=== PATIENT | male | born 1960 | race Caucasian/White ===

== ENCOUNTER 2017-02-15 15:19 | Emergency (ER) | payer OTHER ==
[~2017-02-15 15:19] MED LIST: ALBUTEROL IN200 PUFF INH; ASPIRIN81 MG PO; BACTROBAN15 GM TP; BUSPIRONE HCL5 MG PO; CARAFATE1 GM PO; CLARITIN10 MG PO; COREG6.25 MG PO; CYMBALTA30 MG PO; DESYREL50 MG PO; DOK100 MG PO; ELIQUIS5 MG PO; FINASTERIDE5 MG PO; FOLIC ACID1 MG PO; ISOSORBIDE MONO30 MG PO; KEFLEX500 MG PO; KLONOPIN2 MG PO; KLOR-CON 1010 MEQ PO; LANTUS100 UNIT/1 SQ; LEXAPRO20 MG PO; LIPITOR40 MG PO; MELOXICAM15 MG PO; MOTRIN600 MG PO; NEURONTIN400 MG PO; NEURONTIN800 MG PO; NITROGLYCERIN0.4 MG SL; OMEPRAZOLE40 MG PO; OXYCODON-ACETA1 EAC1 PO; PACERONE200 MG PO; PHENERGAN25 M1 PO; SINGULAIR10 MG PO; SULFAMETHOXAZO1 EACH PO; ZESTRIL20 MG PO; ZESTRIL5 MG PO; ZYLOPRIM300 MG PO
== END 2017-02-15 17:19 | disposition home or self-care (01) ==
LOC: ER 15:19
DX: S70.02XA Contusion of left hip, initial encounter (principal); S20.229A Contusion of unspecified back wall of thorax, initial encounter; W19.XXXA Unspecified fall, initial encounter; Y92.019 Unspecified place in single-family (private) house as the place of occurrence of the external cause; I10 Essential (primary) hypertension; J44.9 Chronic obstructive pulmonary disease, unspecified; Z90.49 Acquired absence of other specified parts of digestive tract; Z98.890 Other specified postprocedural states; Z88.0 Allergy status to penicillin; Z79.899 Other long term (current) drug therapy
CPT/HCPCS: 72100; 73502; 96372; 99283-25

== ENCOUNTER 2017-03-15 06:21 | Emergency (ER) | payer OTHER | END 2017-03-15 09:07 | disposition home or self-care (01) | LOC: ER 06:21 | DX: S02.2XXA Fracture of nasal bones, initial encounter for closed fracture (principal); S80.12XA Contusion of left lower leg, initial encounter; S30.0XXA Contusion of lower back and pelvis, initial encounter; S01.81XA Laceration without foreign body of other part of head, initial encounter; W10.9XXA Fall (on) (from) unspecified stairs and steps, initial encounter; Y92.019 Unspecified place in single-family (private) house as the place of occurrence of the external cause; I10 Essential (primary) hypertension; E11.9 Type 2 diabetes mellitus without complications; M54.9 Dorsalgia, unspecified; G89.29 Other chronic pain; Z88.0 Allergy status to penicillin | CPT/HCPCS: 12011; 70160; 72040; 72100; 73590; 90471; 90715; 99070; 99283-25 ==

== ENCOUNTER 2017-03-19 09:56 | Emergency (ER) | payer OTHER ==
[2017-03-19 11:09] LABS: URINE BILIRUBIN NEGATIVE (NEGATIVE); URINE BLOOD NEGATIVE (NEGATIVE); URINE GLUCOSE (UA) 50 mg/dL (NORMAL); URINE KETONE NEGATIVE (NEGATIVE); URINE LEUKOCYTE ESTERASE NEGATIVE (NEGATIVE); URINE NITRATE NEGATIVE (NEGATIVE); URINE PROTEIN NEGATIVE (NEGATIVE); UROBILINOGEN NORMAL mg/dL (<1.0)
== END 2017-03-19 11:16 | disposition home or self-care (01) ==
LOC: ER 09:56
PROVIDERS: Emergency Medicine
DX: M54.6 Pain in thoracic spine (principal); G89.29 Other chronic pain; M25.572 Pain in left ankle and joints of left foot; W11.XXXD Fall on and from ladder, subsequent encounter; E11.9 Type 2 diabetes mellitus without complications; J44.9 Chronic obstructive pulmonary disease, unspecified; Z95.1 Presence of aortocoronary bypass graft; I51.9 Heart disease, unspecified; Z88.0 Allergy status to penicillin
CPT/HCPCS: 81003; 96372; 99283-25

== ENCOUNTER 2017-03-23 04:37 | Observation (INO) | payer OTHER ==
[~2017-03-23] VITALS: Ht 182.9 cm; Wt 95.0 kg
[2017-03-23 05:37] LABS: BASO % 0.2 % (0.2-1.2); EOS # 0.1 10_X3_uL (0.0-0.5); EOS % 1.5 % (0.8-7.0); GRAN # 5.8 10_X3_uL (1.8-5.4); GRAN % 72.6 % (34.0-67.9); HEMATOCRIT 40.8 % (40-51); HEMOGLOBIN 14.4 g/dL (13.7-17.5); LYMPH # 1.6 10_X3_uL (1.3-3.6); LYMPH % 20.3 % (21.8-53.1); MEAN CORPUSCULAR HEMOGLOBIN 28.9 pg (27.0-33.0); MEAN CORPUSCULAR HGB CONC 35.3 g/dL (32.0-36.0); MEAN CORPUSCULAR VOLUME 81.8 fL (79-92); MEAN PLATELET VOLUME 10.1 fl (7.5-11.5); MONO # 0.4 10_X3_uL (0.3-0.8); MONO % 5.4 % (5.3-12.2); PLATELET COUNT 198 x10_3/uL (163-337); RED BLOOD COUNT 4.99 x10_6/uL (4.6-6.1); RED CELL DISTRIBUTION WIDTH 13.8 % (11.6-14.4)
[2017-03-23 06:05] LABS: ALBUMIN 4.5 gm/dL (3.4-5.0); ALKALINE PHOSPHATASE 85 U/L (50-136); ALT/SGPT 10 U/L (7.53-40.17); AST/SGOT 13 U/L (6.66-35.34); BILIRUBIN,TOTAL 0.96 mg/dL (0.0-1.0); BLOOD UREA NITROGEN 11 mg/dL (7-18); CALCIUM 9.3 mg/dL (8.7-10.7); CARBON DIOXIDE 26 mmol/L (21-32); CREATINE KINASE 64 U/L (35-232); CREATININE 0.6 mg/dL (0.6-1.3); GLUCOSE,RANDOM 195 mg/dL (70-99); POTASSIUM 4.2 mmol/L (3.5-5.1); SODIUM 139 mmol/L (136-145); TOTAL PROTEIN 6.8 gm/dL (6.4-8.2)
[2017-03-23 08:16] LABS: INR 1.2 (1.0-1.1); PARTIAL THROMBOPLASTIN TIME 28.1 SECONDS (21.8-28.4); PROTHROMBIN TIME (PATIENT) 12.2 SECONDS (9.6-10.8)
[2017-03-23 12:14] LABS: CKMB 1.8 ng/ml (0.0-5.0)
[2017-03-23 12:16] LABS: TROP-I < 0.30 NG/ML (0.00-0.30)
[2017-03-23 17:49] LABS: CKMB 1.5 ng/ml (0.0-5.0)
[2017-03-23 17:56] LABS: TROP-I < 0.30 NG/ML (0.00-0.30)
[2017-03-23 23:30] LABS: CKMB 1.5 ng/ml (0.0-5.0)
[2017-03-23 23:31] LABS: TROP-I < 0.30 NG/ML (0.00-0.30)
[2017-03-24 09:52] LABS: FREE T4 1.51 ng/dL (0.93-1.7); THYROID STIMULATING HORMONE 0.757 uIU/mL (0.34-4.82)
== END 2017-03-25 12:22 | disposition home or self-care (01) ==
LOC: ER 04:37 → MS 07:06 → UNDODEPER 03-27 07:26
PROVIDERS: Emergency Medicine; ADMIT Family Medicine
DX: R07.89 Other chest pain (principal); M79.602 Pain in left arm; R11.0 Nausea; I10 Essential (primary) hypertension; E11.9 Type 2 diabetes mellitus without complications; J44.9 Chronic obstructive pulmonary disease, unspecified; M54.5 Low back pain; R10.30 Lower abdominal pain, unspecified; W19.XXXD Unspecified fall, subsequent encounter; I25.10 Atherosclerotic heart disease of native coronary artery without angina pectoris; R06.02 Shortness of breath; F41.9 Anxiety disorder, unspecified; R51 Headache; Z88.0 Allergy status to penicillin; Z95.1 Presence of aortocoronary bypass graft; Z79.891 Long term (current) use of opiate analgesic; Z79.82 Long term (current) use of aspirin; Z79.01 Long term (current) use of anticoagulants; Z79.4 Long term (current) use of insulin
CPT/HCPCS: 36415; 71010; 74150; 80053; 80061; 82550; 82553; 82962; 83036; 84439; 84443; 85025; 85610; 85730; 93005; 93041; 99070; 99285; G0378

== ENCOUNTER 2017-04-01 10:13 | Emergency (ER) | payer OTHER ==
[2017-04-01 11:07] LABS: BASO % 0.3 % (0.2-1.2); EOS # 0.2 10_X3_uL (0.0-0.5); EOS % 2.9 % (0.8-7.0); GRAN # 5.3 10_X3_uL (1.8-5.4); GRAN % 67.8 % (34.0-67.9); HEMATOCRIT 40.5 % (40-51); HEMOGLOBIN 14.1 g/dL (13.7-17.5); LYMPH # 1.8 10_X3_uL (1.3-3.6); LYMPH % 23.4 % (21.8-53.1); MEAN CORPUSCULAR HEMOGLOBIN 28.4 pg (27.0-33.0); MEAN CORPUSCULAR HGB CONC 34.8 g/dL (32.0-36.0); MEAN CORPUSCULAR VOLUME 81.5 fL (79-92); MEAN PLATELET VOLUME 10.2 fl (7.5-11.5); MONO # 0.4 10_X3_uL (0.3-0.8); MONO % 5.6 % (5.3-12.2); PLATELET COUNT 218 x10_3/uL (163-337); RED BLOOD COUNT 4.97 x10_6/uL (4.6-6.1); RED CELL DISTRIBUTION WIDTH 13.8 % (11.6-14.4); WHITE BLOOD COUNT 7.8 x10_3/uL (4.2-9.1)
[2017-04-01 11:12] LABS: CALCIUM 9.1 mg/dL (8.7-10.7); CARBON DIOXIDE 23 mmol/L (21-32); CREATININE 0.8 mg/dL (0.6-1.3); GLUCOSE,RANDOM 192 mg/dL (70-99); POTASSIUM 4.3 mmol/L (3.5-5.1); SODIUM 136 mmol/L (136-145)
[2017-04-01 11:15] LABS: BLOOD UREA NITROGEN 7 mg/dL (7-18)
== END 2017-04-01 12:40 | disposition short-term general hospital (02) ==
LOC: ER 10:13
PROVIDERS: General Practice
DX: I20.9 Angina pectoris, unspecified (principal); I25.2 Old myocardial infarction; E11.65 Type 2 diabetes mellitus with hyperglycemia; M25.532 Pain in left wrist; J44.9 Chronic obstructive pulmonary disease, unspecified; I25.10 Atherosclerotic heart disease of native coronary artery without angina pectoris; G47.30 Sleep apnea, unspecified; J45.909 Unspecified asthma, uncomplicated; Z95.1 Presence of aortocoronary bypass graft; Z88.0 Allergy status to penicillin
CPT/HCPCS: 36415; 71010; 73110; 80048; 85025; 93005; 96372; 96374; 99285-25